=== PATIENT | female | born 1985 | race Caucasian/White ===

== ENCOUNTER → 2021-06-12 13:54 | Outpatient (CLI) | payer OTHER, SELFPAY ==
--- NOTE | ~2021-06-12 | US_ITS ---
EXAMINATION: US soft tissue LE RT DATE: 06/12/2021 14:19 INDICATION: Right posterior and medial knee pain TECHNIQUE: Multiple grayscale and Doppler ultrasound images of the region of concern at the posterior and medial aspect of the right knee were obtained. COMPARISON: None FINDINGS: Are normal in caliber patent and compressible right popliteal vein. Normal caliber right popliteal ar daphne with no aneurysm. No Hill's cyst or other abnormal masses identified. IMPRESSION: 1. Normal study. No Hill's cyst or other etiology for reported pain at the posterior medial right kn ee. Reviewed, dictated and finalized at location B. IMPRESSION: 1. Normal study. No Hill's cyst or other etiology for reported pain at the pos terior medial right knee.
== END ==
PROVIDERS: PCP Internal Medicine; Visit Provider Internal Medicine
DX: R29.898 Other symptoms and signs involving the musculoskeletal system (principal)
CPT/HCPCS: 76882

== ENCOUNTER 2022-05-01 09:56 | Emergency (ER) | payer OTHER, SELFPAY ==
--- NOTE | ~2022-05-01 | NM_ITS ---
Nuclear Medicine Procedure: Perfusion/Ventilation Lung Scan History: Shortness of breath. Interpretation: Ventilation portion of the exam was not performed due to Covid 19 precautions. 5.5 mCi. of Technetium-labeled microspheres were injected intravenously and multiple images obtained in 8 projections revealed normal perfusion to the lungs without any segmental or subsegmental defects . Impression: Normal perfusion lung scan. Reviewed, dictated and finalized at location . Impression: Normal perfusion lung scan.
--- NOTE | ~2022-05-01 | XR_ITS ---
Clinical Indication: Shortness of breath PA and lateral views of the chest: Comparison: None Findings: The lungs are clear, without evidence of focal consolidation or pleural effusion. Cardiome diastinal silhouette is within normal limits. Bones and soft tissues are unremarkable. Impression: Normal chest. Reviewed, dictated and finalized at [facility]. Impression: Normal chest.
--- NOTE | 2022-05-01 09:58 | ECG_ITS ---
Measurements Intervals [place] Rate: 70 P: 55 IN: 136 QRS: 58 QRSD: 86 T: 46 QT: 360 QTc: 389 Interpretive Statements SINUS RHYTHM WITH SINUS ARRHYTHMIA MINIMAL Q WAVES- INFERIOR LEADS BORDERLINE ST-T WAVE ABNORMALITY- ANTERIOR LEADS BORDERLINE ECG NO PREVIOUS ECG AVAILABLE FOR COMPARISON Electronically Signed On 05-01-2022 10:40:04 CDT by Kwame Posadas D.O.
[2022-05-01 10:09] VITALS: BP 110/85; PULSE 80; RESP 20; TEMP 36.7; O2SAT 100
[2022-05-01 10:29] LABS: Basophils Percent Auto 0.4 % (0.2-1.2); Eosinophils Percent Auto 0.8 % (0-4.4); Hemoglobin 13.5 g/dL (12.0-15.0); Immature Granulocyte Absolute 0.01 K/mm3 (0.00-0.031); Immature Granulocyte Percent A 0.2 % (0-0.5); Lymphocytes Absolute Auto 1.79 K/mm3 (0.9-3.2); Lymphocytes Percent Auto 35.1 % (18.3-44.2); Mean Corpuscular HGB Conc 34.6 g/dl (32-36); Mean Corpuscular Hemoglobin 30.3 pg (26-34); Mean Corpuscular Volume 87.4 fl (80-100); Mean Platelet Volume 10.1 fl (7.4-10.4); Monocytes Absolute Auto 0.5 K/mm3 (0.1-0.6); Monocytes Percent Auto 10.2 % (2.6-8.5); Neutrophils Absolute Auto 2.7 K/mm3 (1.3-6.7); Neutrophils Percent Auto 53.3 % (45.5-73.1); Platelet Count Result 235 k/mm3 (150-375); Red Blood Count 4.46 M/mm3 (4.2-5.4); Red Cell Distribution Width 12.2 % (11.5-14.5); White Blood Count 5.1 K/mm3 (4.5-10.0)
[2022-05-01 10:32] LABS: Prothrombin Time 13.1 Seconds (11.1-14.7)
[2022-05-01 10:36] LABS: Alanine Aminotransferase 25 U/L (6-35); Albumin Level 4.6 g/dL (3.5-5.1); Alkaline Phosphatase 80 U/L (38-126); Anion Gap 8 mmol/L (8-16); Aspartate Amino Transferase 21 U/L (14-36); Bilirubin,Total 0.6 mg/dL (0.2-1.3); Blood Urea Nitrogen 10 mg/dL (7-17); Calcium 9.1 mg/dL (8.4-10.2); Carbon Dioxide 23 mmol/L (22-30); Chloride 109 mmol/L (98-107); Estimated CRCL calculation 89 ml/min; Estimated Glomerular Filt Rate > 60; Glucose 93 mg/dL (65-110); Lipase 34 U/L (23-300); Potassium 3.4 mmol/L (3.4-5.0); Sodium 140 mmol/L (137-145)
[2022-05-01 10:47] LABS: Troponin I < 0.012 ng/mL (0.000-0.034)
--- NOTE | 2022-05-01 11:25 | PC.NURSE ---
pt c/o SOB with exertion. pt states she has a family history of blood clots. pt states this has been going on for about a year now. pt c/o a sharp pain that comes and goes in her right upper chest/shoulder that started today. pt states she was seen at her PCP and was sent to the ER.
--- NOTE | 2022-05-01 11:30 | ED.CHESTPAIN ---
HPI - Chest Pain General Chief Complaint: Chest Pain Stated Complaint: sent in by doctor because of cp, sob Time Seen by Provider: 05/01/22 11:15 History of Present Illness HPI narrative: Patient is a 37-year-old female here for evaluation of shortness of breath for the past 3 days. Patient states that she becomes short of breath with exertion which is new for her. She also reports left-sided chest pain that she attributes to anxiety. She saw her primary care doctor this morning who recommended ED evaluation. She has had no leg swelling, recent surgeries, oral contraceptive use. Denies history of previous similar sensation, no history of respiratory disease. Related Data Allergies Allergy/AdvReac Type Severity Reaction Status Date / Time iohexol Allergy Hives Verified 05/01/22 10:15 [From contrast - CT, X-RAY] Review of Systems Review of Systems: Gen.: Denies fevers or chills Eyes: Denies eye pain or visual change ENT: Denies congestion Respiratory: Reports shortness of breath CV: Reports chest pain. GI: Denies abdominal pain nausea, emesis or diarrhea denies burning, urgency, frequency or hematuria Musculoskeletal: Denies back pain or muscle pain Neuro: Denies numbness, tingling, weakness or focal weakness Skin: Denies rash Except as documented, all other systems reviewed and negative Exam Narrative: APPEARANCE: Does appear short of breath but no acute respiratory distress Head: Normocephalic and atraumatic. EYES: PERRLA/EOMI, conjunctivae clear NOSE: No nasal drainage EARS: External ear normal in appearance THROAT: Oropharynx is clear. Mucous membranes are moist. NECK: Supple. No adenopathy, no masses. RESPIRATORY: Airway patent, respirations nonlabored. Clear to auscultation bilaterally, no rales, rhonchi, wheezing. CARDIOVASCULAR: Regular rate and rhythm without murmurs, rubs, or gallops. ABDOMINAL: Normoactive bowel sounds. Soft, nontender, nondistended. No rebound tenderness or guarding. MUSCULOSKELETAL: Extremities are warm and well-perfused. Moves all extremities well. No edema. NEURO: Normal speech. No focal neurologic deficits. SKIN: Skin is warm and dry. No rashes. PSYCHIATRIC: Normal affect/mood. Course Vital Signs Vital signs: Vital Signs Temperature 98.1 F 05/01/22 10:09 Pulse Rate 80 05/01/22 10:09 Respiratory Rate 20 05/01/22 10:09 Blood Pressure 110/85 05/01/22 10:09 Pulse Oximetry 100 05/01/22 10:09 Temperature 98.1 F 05/01/22 10:09 Pulse Rate 70 05/01/22 14:19 Respiratory Rate 16 05/01/22 14:19 Blood Pressure 114/74 05/01/22 14:19 Pulse Oximetry 100 05/01/22 14:19 Oxygen Delivery Room Air 05/01/22 11:24 MDM - Chest Pain MDM Narrative Medical decision making narrative: 37-year-old female sent here by her primary care doctor for evaluation of shortness of breath over the past several days, lightheadedness upon standing. Patient is nontoxic in appearance, no respiratory distress, heart and lungs are clear to auscultation with normal vital signs. She became symptomatic with orthostatic vital signs and her heart rate did jump up to about 20 bpm with standing. Basic labs unremarkable. EKG and troponin x2 are nonischemic. Chest x-ray is clear. Her D-dimer is slightly elevated at 0.94, unfortunately patient has an allergy to contrast therefore VQ scan was ordered to rule out PE which was normal. Patient reassured, was discharged home to [facility] with PMD. Symptoms may be due to orthostatic hypotension. Return precautions were discussed and she voiced understanding. Lab Data 05/01/22 10:06 05/01/22 10:06 Labs: Lab Results 05/01/22 05/01/22 05/01/22 Range/Units 10:06 10:06 10:06 WBC 5.1 (4.5-10.0) K/mm3 RBC 4.46 (4.2-5.4) M/mm3 Hgb 13.5 (12.0-15.0) g/dL Hct 39.0 (37.0-47.0) % MCV 87.4 (80-100) fl MCH 30.3 (26-34) pg MCHC 34.6 (32-36) g/dl RDW 12.2 (11.5-14.5) % Plt Count
[2022-05-01] MEDS: ASPIRIN 81 MG CHEWABLE TABLET 324 MG PO (11:52)
[2022-05-01 11:55] VITALS: BP 115/78; PULSE 63; RESP 16; O2SAT 100
[2022-05-01 12:03] LABS: D Dimer 0.94 ug/mL (<0.48)
[2022-05-01 13:30] LABS: Troponin I < 0.012 ng/mL (0.000-0.034)
[2022-05-01 13:32] VITALS: BP 110/63; PULSE 62
[2022-05-01 13:33] VITALS: BP 109/79; PULSE 81
[2022-05-01 13:35] VITALS: BP 109/84; PULSE 108
[2022-05-01 14:19] VITALS: BP 114/74; PULSE 70; RESP 16; O2SAT 100
== END 2022-05-01 14:26 | disposition home or self-care (01) ==
PROVIDERS: Emergency Provider Physician Assistant; PCP Emergency Medicine
DX: R06.02 Shortness of breath (principal); R55 Syncope and collapse; R07.9 Chest pain, unspecified
CPT/HCPCS: 36415; 71046; 78580; 80053; 83690; 84484; 85025; 85380; 85610; 85730; 93005; 99284; A9270; A9540

== ENCOUNTER → 2022-06-19 09:11 | Outpatient (CLI) | payer OTHER, SELFPAY ==
--- NOTE | ~2022-06-19 | XR_ITS ---
Cervical Spine: AP, lateral, oblique, open-mouth views Clinical History: Pain Findings: The normal lordotic curve is maintained. The vertebral bodies and posterior elements appea r intact. The intervertebral disc spaces are well maintained. Pre-vertebral soft tissues are unremar kable. Impression: No significant abnormality is seen. Reviewed, dictated and finalized at [facility]. Impression: No significant abnormality is seen.
== END ==
PROVIDERS: PCP Emergency Medicine; Visit Provider Emergency Medicine
DX: R42 Dizziness and giddiness (principal); R20.0 Anesthesia of skin
CPT/HCPCS: 72050